=== PATIENT | male | born 1965 | race American Indian/Alaskan Native ===

== ENCOUNTER 2019-02-12 13:00 | Inpatient (IN) | payer OTHER ==
--- NOTE | 2019-02-12 13:13 | Event Note ---
ED Screening Note Date of service: 02/12/19 Time: 13:10 ED Screening Note: This is a 53 y.o. M. that presents to the ER with palpitations for 3 days. Patient states it is intermittent. No PCP or prior diagnosis. This initial assessment/diagnostic orders/clinical plan/treatment(s) is/are subj ect to change based on patients health status, clinical progression and re- assessment by fellow clinical providers in the ED. Further treatment and workup at subsequent clinical providers discretion. Patient/guardian urged not to elope from the ED as their condition may be serious if not clinically assessed and managed. Initial orders include: Labs, EKG, and CXR
--- NOTE | 2019-02-12 14:11 | XRay Report ---
CHEST 1 VIEW INDICATION: palpitations. COMPARISON: None. FINDINGS: Support devices: None. Heart: Within normal limits. Pulmonary vasculature: Normal. Lungs/Pleura: No acute air space or interstitial disease. Additional findings: Aortic elongation. Degenerative change in the spine. IMPRESSION: 1. No acute findings. 2. Hypertensive changes in aorta. Signer Name: Virgilio Delarosa MD Signed: 02/12/2019 2:07 PM Workstation Name: [id number]
[2019-02-12 14:31] LABS: Basophils % (Auto) 0.3 % (0.0-1.8); Eosinophils # (Auto) 0.3 K/mm3 (0.0-0.4); Eosinophils % (Auto) 4.2 % (0.0-4.3); Hematocrit 49.2 % (35.5-45.6); Hemoglobin 16.3 gm/dl (11.8-15.2); Lymphocytes # (Auto) 2.9 K/mm3 (1.2-5.4); Lymphocytes % (Auto) 36.4 % (13.4-35.0); Mean Corpuscular HGB Conc 33 % (32-34); Mean Corpuscular Volume 90 fl (84-94); Monocytes # (Auto) 0.6 K/mm3 (0.0-0.8); Monocytes % (Auto) 7.4 % (0.0-7.3); Platelet Count 259 K/mm3 (140-440); Red Blood Count 5.44 M/mm3 (3.65-5.03); Red Cell Distribution Width 13.8 % (13.2-15.2)
[2019-02-12 14:55] LABS: Alanine Aminotransferase 32 units/L (7-56); Albumin 4.3 g/dL (3.9-5); BUN/Creatinine Ratio 13; Blood Urea Nitrogen 12 mg/dL (9-20); Calcium 9.5 mg/dL (8.4-10.2); Hemolysis Index 33
--- NOTE | 2019-02-12 15:18 | Emergency Department Report ---
ED Palpitations HPI - General Chief Complaint: Arrhythmia/Palpitations Stated Complaint: PALPITATION Time Seen by Provider: 02/12/19 13:09 Source: patient Mode of arrival: Ambulatory Limitations: No Limitations - History of Present Illness Initial Comments: 53-year-old male with no known past medical history presents to the hospital complaining of intermittent palpitations since yesterday. No aggravating or alleviating factors reported. He denies associated symptoms including lightheadedness, chest pain, or shortness of breath. Patient denies a history of any past medical problems but has not seen a doctor immediately years. He denies daily alcohol intake. He has used cocaine in the past with last use 8 months ago. He denies any current drug use and does not smoke. Patient's last travel was in September. He denies Dizziness, leg edema, history of PE/DVT. He does not have a primary care doctor. - Related Data Allergies Allergy/AdvReac Type Severity Reaction Status Date / Time No Known Allergies Allergy Unverified 02/12/19 13:02 ED Review of Systems ROS: Stated complaint: PALPITATION Other details as noted in HPI Comment: All other systems reviewed and negative ED Past Medical Hx - Past Medical History Previous Medical History?: No - Surgical History Past Surgical History?: No - Social History Smoking Status: Never Smoker Substance Use Type: Alcohol ED Physical Exam - General Limitations: No Limitations - Other Other exam information: General: No acute distress Head: Atraumatic Eyes: normal appearance ENT: Moist mucous membranes Neck: Normal appearance, no midline tenderness Chest: Clear to auscultation bilaterally CV: Regular rate and rhythm rhythm with intermittent tachycardia Abdomen: Soft, normal bowel sounds, nontender, nondistended, no rebound or guarding Back: Normal inspection Extremity: Normal inspection infection, full range of motion, no calf tenderness or leg edema Neuro: Alert O x 3, no facial asymmetry, speech clear, no gross motor sensory deficit Psych: Appropriate behavior Skin: No rash ED Course Vital Signs 02/12/19 02/12/19 13:06 14:12 Temperature 98.7 F 98.3 F Pulse Rate 111 H 112 H Respiratory 22 18 Rate Blood Pressure 166/93 Blood Pressure 148/74 [Left] O2 Sat by Pulse 96 95 Oximetry - Consultations Consultation #1: 02/12/19 15:40 pt seen at bedside by cardiology Asha becerra, recommends Cardizem by mouth 60 mg now and Lovenox. ED Medical Decision Making - Lab Data Result diagrams: 02/12/19 13:23 02/12/19 13:23 Lab Results 02/12/19 02/12/19 02/12/19 Range/Units 13:23 13:23 13:23 WBC 8.1 (4.5-11.0) K/mm3 RBC 5.44 H (3.65-5.03) M/mm3 Hgb 16.3 H (11.8-15.2) gm/dl Hct 49.2 H (35.5-45.6) % MCV 90 (84-94) fl MCH 30 (28-32) pg MCHC 33 (32-34) % RDW 13.8 (13.2-15.2) % Plt Count 259 (140-440) K/mm3 Lymph % (Auto) 36.4 H (13.4-35.0) % [place] % (Auto) 7.4 H (0.0-7.3) % Eos % (Auto) 4.2 (0.0-4.3) % Baso % (Auto) 0.3 (0.0-1.8) % Lymph # 2.9 (1.2-5.4) K/mm3 [place] # 0.6 (0.0-0.8) K/mm3 Eos # 0.3 (0.0-0.4) K/mm3 Baso # 0.0 (0.0-0.1) K/mm3 Seg Neutrophils % 51.7 (40.0-70.0) % Seg Neutrophils # 4.2 (1.8-7.7) K/mm3 D-Dimer (0-234) ng/mlDDU Sodium 137 (137-145) mmol/L Potassium 4.2 (3.6-5.0) mmol/L Chloride 99.2 (98-107) mmol/L Carbon Dioxide 19 L (22-30) mmol/L Anion Gap 23 mmol/L BUN 12 (9-20) mg/dL Creatinine 0.9 (0.8-1.5) mg/dL Estimated GFR > 60 ml/min BUN/Creatinine Ratio 13 % Glucose 326 H (75-100) mg/dL Calcium 9.5 (8.4-10.2) mg/dL Total Bilirubin 0.40 (0.1-1.2) mg/dL AST 24 (5-40) units/L ALT 32 (7-56) units/L Alkaline Phosphatase 111 (35-129) units/L Troponin T < 0.010 (0.00-0.029) ng/mL Total Protein 8.2 (6.3-8.2) g/dL Albumin 4.3 (3.9-5) g/dL Albumin/Globulin Ratio 1.1 % TSH 2.360 (0.270-4.200) mlU/mL 02/12/19 Range/Units 15:02 WBC (4.5-11.0) K/mm3 RBC (3.65-5.03) M/mm3 Hgb (11.8-15.2) gm/dl Hct (35.5-45.6) % MCV (84-94) fl MCH (28-32) pg MCHC (32-34) % RDW (13.2-15.2) % Plt Count (140-440) K/mm3 Lymph % (Auto) (13.4-35.0) % [place] % (Auto) (0.0-7.3) % Eos % (Auto) (0.0-4.3) % Baso % (Auto) (0.0-1.8) % Lymph # (1.2-5.4) K/mm3 [place] # (0.0-0.8) K/mm3 Eos # (0.0-0.4) K/mm3 Baso # (0.0-0.1) K/mm3 Seg Neutrophils % (40.0-70.0) % Seg Neutrophils # (1.8-7.7) K/mm3 D-Dimer 167.12 (0-234) ng/mlDDU Sodium (137-145) mmol/L Potassium (3.6-5.0) mmol/L Chloride (98-107) mmol/L Carbon Dioxide (22-30) mmol/L Anion Gap mmol/L BUN (9-20) mg/dL Creatinine (0.8-1.5) mg/dL Estimated GFR ml/min BUN/Creatinine Ratio % Glucose (75-100) mg/dL Calcium (8.4-10.2) mg/dL Total Bilirubin (0.1-1.2) mg/dL AST (5-40) units/L ALT (7-56) units/L Alkaline Phosphatase (35-129) units/L Troponin T (0.00-0.029) ng/mL Total Protein (6.3-8.2) g/dL Albumin (3.9-5) g/dL Albumin/Globulin Ratio % TSH (0.270-4.200) mlU/mL - EKG Data -: EKG Interpreted by Me EKG shows normal: sinus rhythm, ST-T waves (no stemi) Rate: tachycardia - Medical Decision Making Patient has an EKG done initially was suggestive a sinus tachycardia rate 112. However, during my evaluation after rhythm strip evaluation patient would have a rate in the 90s and it would intermittently increase to the 150s. Patient is having episodes of sinus with paroxysmal atrial flutter. EKG and rhythm strips have been reviewed by mechanic general operational test was in agreement. Patient received Cardizem by mouth and Lovenox subcutaneous as recommended by mechanic general operational test. Glucose and blood pressure noted to be elevated without any previous history of hypertension or diabetes. Hospitalist to admit. - Differential Diagnosis thyroid disease, PE, arrhythmia Critical Care Time: No Critical care attestation.: If time is entered above; I have spent that time in minutes in the direct care of this critically ill patient, excluding procedure time. ED Disposition Clinical Impression: Paroxysmal atrial flutter, HTN (hypertension), Obesity, Hyperglycemia Disposition: OP ADMIT IP TO THIS HOSP Is pt being admited?: Yes Condition: Stable Time of Disposition: 16:02 (Dr mora/hosp)
[2019-02-12] MEDS ORDERED: ENOXAPARIN 100 MG/1 ML INJ SUB-Q ONE (15:40)
[2019-02-12] MEDS ORDERED: dilTIAZem 60 MG TAB PO ONE (15:40)
--- NOTE | 2019-02-12 15:49 | Consultation ---
History of Present Illness Consult date: 02/12/19 Requesting physician: BONG SORIANO Consult reason: other (palpitations) History of present illness: The pt is a 53 YO male with no significant past medical history. He does not regularly see doctors. He presented with c/o intermittent palpitations for the past 3-4 days. The palpitations are worse when he is at rest, lying flat. He denies any associated chest pain, SOB, n/v, diaphoresis, dizziness or syncope. He was found to be hypertensive on arrival and also blood glucose noted to be 326. He denies any known h/o HTN or DM. He does admit that he snores loudly and stops breathing sometimes while sleeping and suspects that he has sleep apnea. Admission ECG shows NSR although during evaluation, he is noted to have brief paroxysms of SVT, apparent atrial flutter with 2:1 conduction, with HR increase to 150s. Past History Past Medical History: No medical history Social history: smoking (former), alcohol abuse (former) Medications and Allergies Allergies Allergy/AdvReac Type Severity Reaction Status Date / Time No Known Allergies Allergy Unverified 02/12/19 13:02 Active Meds: Active Medications Diltiazem HCl (Cardizem) 60 mg PO ONCE ONE Stop: 02/12/19 15:41 Review of Systems Constitutional: no weight loss, no weight gain, no fever, no chills, no sweats Ears, nose, mouth and throat: no ear pain, no nose pain, no sinus pressure, no sinus pain Cardiovascular: palpitations, rapid/irregular heart beat, no chest pain, no orthopnea, no edema, no syncope, no lightheadedness, no shortness of breath, no dyspnea on exertion, no high blood pressure, no leg edema, no decreased exercise tolerance Respiratory: no cough, no shortness of breath, no dyspnea on exertion, no congestion, no wheezing, no pain on inspiration Gastrointestinal: no abdominal pain, no nausea, no vomiting, no diarrhea, no constipation, no change in bowel habits Genitourinary Male: no dysuria, no hematuria, no flank pain, no discharge, no urinary frequency, no urinary hesitancy Musculoskeletal: no neck stiffness, no neck pain, no shooting arm pain, no arm numbness/tingling, no low back pain, no shooting leg pain Integumentary: no rash, no pruritis, no redness, no sores, no wounds Neurological: no head injury, no paralysis, no weakness, no parathesias, no numbness, no tingling, no seizures, no syncope Psychiatric: no anxiety Endocrine: no cold intolerance, no heat intolerance Hematologic/Lymphatic: no easy bruising, no easy bleeding Allergic/Immunologic: no urticaria, no wheezing Physical Examination Vital Signs Temp Pulse Resp BP Pulse Ox 98.7 F 111 H 22 166/93 96 02/12/19 13:06 02/12/19 13:06 02/12/19 13:06 02/12/19 13:06 02/12/19 13:06 General appearance: no acute distress HEENT: Positive: PERRL, Normocephaly, Mucus Membranes Moist Neck: Positive: neck supple, trachea midline Cardiac: Positive: Reg Rate and Rhythm, S1/S2 Lungs: Positive: Decreased Breath Sounds Neuro: Positive: Grossly Intact Abdomen: Negative: Tender Skin: Negative: Rash Musculoskeletal: No Pain Extremities: Absent: edema Results 02/12/19 13:23 02/12/19 13:23 Cardiac Enzymes 02/12/19 Range/Units 13:23 AST 24 (5-40) units/L CBC 02/12/19 Range/Units 13:23 WBC 8.1 (4.5-11.0) K/mm3 RBC 5.44 H (3.65-5.03) M/mm3 Hgb 16.3 H (11.8-15.2) gm/dl Hct 49.2 H (35.5-45.6) % Plt Count 259 (140-440) K/mm3 Lymph # 2.9 (1.2-5.4) K/mm3 [place] # 0.6 (0.0-0.8) K/mm3 Eos # 0.3 (0.0-0.4) K/mm3 Baso # 0.0 (0.0-0.1) K/mm3 Comprehensive Metabolic Panel 02/12/19 Range/Units 13:23 Sodium 137 (137-145) mmol/L Potassium 4.2 (3.6-5.0) mmol/L Chloride 99.2 (98-107) mmol/L Carbon Dioxide 19 L (22-30) mmol/L BUN 12 (9-20) mg/dL Creatinine 0.9 (0.8-1.5) mg/dL Glucose 326 H (75-100) mg/dL Calcium 9.5 (8.4-10.2) mg/dL AST 24 (5-40) units/L ALT 32 (7-56) units/L Alkaline Phosphatase 111 (35-129) units/L Total Protein 8.2 (6.3-8.2) g/dL Albumin 4.3 (3.9-5) g/dL - Imaging and Cardiology Echo: pending EKG: report reviewed, image reviewed EKG interpretations - Telemetry EKG Rhythm: Sinus Rhythm - EKG Sinus rhythms and dysrhythmias: sinus rhythm Assessment and Plan Pt presented with c/o intermittent palpitations for the past 3-4 days. No known prior medical history. Admission ECG shows NSR although during evaluation, he is noted to have brief paroxysms of SVT, apparent atrial flutter with 2:1 conduction, with HR increase to 150s. Optimize HR - initiate PO cardizem and titrate as tolerated. Initiate full do sylvia lovenox BID and consider conversion to OAC prior to hospital discharge. Obtain echo. DDimer pending. TSH and K+ WNL. Obtain serum Mg. Recommend OP sleep study once discharged. Can consider stress test once HR is optimized. Further recs to follow per hospital course. The patient has been seen in conjunction with Dr. Sharma who agrees with the assessment and plan of care. - Patient Problems (1) Paroxysmal atrial flutter Status: Acute (2) HTN (hypertension) Status: Chronic (3) Hyperglycemia Status: Acute (4) Obesity Status: Chronic (5) Sleep apnea Status: Suspected
--- NOTE | 2019-02-12 16:03 | History and Physical Report ---
History of Present Illness Chief complaint: My heart is pounding inside my chest History of present illness: 53 YO Male with Obesity presents to ED for evaluation. Pt states that he has experienced feeling like his "heart is pounding" over the past 4 days with intermittently persistent symptoms over the same time frame. Pt transported to [facility]. Pt seen and evaluated in ED and found to have New onset Atrial Fib/flutter with heart rate in the 150's, Obesity Hypoventilation. Pt placed in observation status and admitted to telemetry. Pt denies fever, chills, CP, NVD, Trauma, Unintentional weight loss, difficulty swallowing, neck swelling, skin rash, unilateral leg swelling, calf pain, Individual/Family history of DV T/PE/Bleeding/Blood Clotting Disorders. No prior admission for review. No medication listed at time of admission for reconciliation. Past History Past Medical History: No medical history Past Surgical History: No surgical history, Other (reviewed) Social history: smoking (former), alcohol abuse (former) Family history: diabetes, hypertension Medications and Allergies Allergies Allergy/AdvReac Type Severity Reaction Status Date / Time No Known Allergies Allergy Unverified 02/12/19 13:02 Active Meds: Active Medications Diltiazem HCl (Cardizem) 60 mg PO Q6HR DANA Review of Systems Constitutional: no weight loss, no weight gain, no fever, no chills Ears, nose, mouth and throat: no ear pain, no ear discharge, no tinnitis, no decreased hearing, no nose pain Cardiovascular: palpitations, no chest pain, no lightheadedness, no paroxysmal nocturnal dyspnea, no decreased exercise tolerance Respiratory: no cough, no cough with sputum, no excessive sputum Gastrointestinal: no abdominal pain, no nausea, no vomiting, no diarrhea, no constipation Genitourinary Male: no hematuria, no flank pain, no discharge, no urinary frequency, no urinary hesitancy Rectal: no pain, no incontinence, no bleeding Musculoskeletal: no neck stiffness, no neck pain, no shooting arm pain, no arm numbness/tingling, no low back pain Integumentary: no rash, no pruritis, no redness, no sores, no wounds Neurological: no transient paralysis, no paralysis, no weakness, no parathesias, no numbness, no tingling Psychiatric: no anxiety, no memory loss, no change in sleep habits, no sleep disturbances, no insomnia, no hypersomnia, no change in appetite Endocrine: no cold intolerance, no heat intolerance, no polyphagia, no excessive thirst, no polydipsia, no polyuria Hematologic/Lymphatic: no easy bruising, no easy bleeding, no lymphadenopathy Allergic/Immunologic: no urticaria, no allergic rhinitis, no wheezing, no persistent infections Exam - Constitutional Vitals: Temp Pulse Resp BP Pulse Ox 98.3 F 112 H 18 148/74 95 02/12/19 14:12 02/12/19 14:12 02/12/19 14:12 02/12/19 14:12 02/12/19 14:12 General appearance: Present: mild distress, obese - EENT Eyes: Present: PERRL ENT: hearing intact, clear oral mucosa - Neck Neck: Present: supple, normal ROM - Respiratory Respiratory effort: normal Respiratory: bilateral: CTA - Cardiovascular Rhythm: irregularly irregular Heart Sounds: Present: S1 & S2. Absent: rub, click - Extremities Extremities: pulses symmetrical, No edema Peripheral Pulses: within normal limits - Abdominal General gastrointestinal: Present: soft, non-tender, non-distended, normal bowel sounds Male genitourinary: Present: normal - Integumentary Integumentary: Present: clear, warm, dry - Musculoskeletal Musculoskeletal: gait normal, strength equal bilaterally - Psychiatric Psychiatric: appropriate mood/affect, intact judgment & insight - Neurologic Neurologic: CNII-XII intact, moves all extremities Results - Labs CBC & Chem 7: 02/12/19 13:23 02/12/19 13:23 Labs: Abnormal lab results 02/12/19 02/12/19 Range/Units 13:23 13:23 RBC 5.44 H (3.65-5.03) M/mm3 Hgb 16.3 H (11.8-15.2) gm/dl Hct 49.2 H (35.5-45.6) % Lymph % (Auto) 36.4 H (13.4-35.0) % [place] % (Auto) 7.4 H (0.0-7.3) % Carbon Dioxide 19 L (22-30) mmol/L Glucose 326 H (75-100) mg/dL Assessment and Plan - Patient Problems (1) Atrial fibrillation and flutter Current Visit: Yes Status: Acute Plan to address problem: Rate control with cardizem, telemetry monitoring, supportive care. (2) Obesity hypoventilation syndrome Current Visit: Yes Status: Acute Plan to address problem: pulse oximetry, chest x ray, NIPPV as clinically indicated, Outpatient sleep study, (3) Diabetes Current Visit: Yes Status: Acute Plan to address problem: ADA diet, insulin, accu check, hgb A1C (4) DVT prophylaxis Current Visit: Yes Status: Acute Plan to address problem: SCD to BLE while in bed, continue therapeutic anticoagulation.
[2019-02-12] MEDS ORDERED: DEXTROSE 50% IN WATER (25GM) 50 ML SYRINGE IV PRN (16:04)
[2019-02-12] MEDS ORDERED: ALBUTEROL 2.5 MG/3 ML NEBU IH PRN (16:05)
[2019-02-12] MEDS ORDERED: ACETAMINOPHEN 325 MG TAB PO PRN (16:05)
[2019-02-12] MEDS ORDERED: ONDANSETRON 4 MG/2 ML INJ IV PRN (16:05)
[2019-02-12 17:37] LABS: Amphetamine Screen,Urine PRESUMPTIVE NEGATIVE; Benzodiazepines Screen,Urine PRESUMPTIVE NEGATIVE; Cannabinoid Screen,Urine PRESUMPTIVE NEGATIVE; Cocaine Screen,Urine PRESUMPTIVE NEGATIVE; Opiate Screen,Urine PRESUMPTIVE NEGATIVE
[2019-02-12 17:52] LABS: Methadone Screen,Urine PRESUMPTIVE NEGATIVE
[2019-02-12] MEDS: INSULIN LISPRO 100 UNIT/ML SUB-Q SCH (18:44)
[2019-02-12] MEDS: FAMOTIDINE 20 MG TAB PO SCH (22:33)
[2019-02-12] MEDS: dilTIAZem 60 MG TAB PO SCH (22:33)
[2019-02-13] MEDS: INSULIN LISPRO 100 UNIT/ML SUB-Q SCH ×5 (00:48→22:13)
[2019-02-13] MEDS: dilTIAZem 60 MG TAB PO SCH ×4 (00:49→22:10)
[2019-02-13 04:35] LABS: Hematocrit 47.3 % (35.5-45.6); Hemoglobin 15.5 gm/dl (11.8-15.2); Mean Corpuscular HGB Conc 33 % (32-34); Mean Corpuscular Volume 91 fl (84-94); Platelet Count 243 K/mm3 (140-440); Red Cell Distribution Width 13.6 % (13.2-15.2)
[2019-02-13 05:39] LABS: BUN/Creatinine Ratio 13; Blood Urea Nitrogen 12 mg/dL (9-20); Calcium 9.5 mg/dL (8.4-10.2); Chol/HDL Ratio 7.34 %; HDL Cholesterol 26 mg/dL (40-59); Hemolysis Index 17; LDL Cholesterol,Direct TNR mg/dL (50-130)
[2019-02-13] MEDS ORDERED: ENOXAPARIN 100 MG/1 ML INJ SUB-Q SCH (10:00)
--- NOTE | 2019-02-13 10:49 | Progress Note ---
Assessment and Plan Optimize HR - initiate PO lopressor 50mg BID and decrease cardizem to 60mg TID. Cont full dosage lovenox BID and consider conversion to OAC prior to hospital discharge. Await echo. Recommend OP sleep study once discharged. Plan for lexiscan MPI stress test in AM pending HR is optimized. NPO after MN. The patient has been seen in conjunction with Dr. Sharma who agrees with the assessment and plan of care. - Patient Problems (1) Paroxysmal atrial flutter Current Visit: No Status: Acute (2) HTN (hypertension) Current Visit: No Status: Chronic (3) Newly diagnosed diabetes Current Visit: Yes Status: Acute (4) Obesity Current Visit: Yes Status: Chronic (5) Sleep apnea Current Visit: Yes Status: Suspected Subjective Date of service: 02/13/19 Principal diagnosis: parox afib/aflutter Interval history: pt ambulating around room, still with c/o intermittent palpitations. tele reviewed - currently in SR with frequent bouts of AFib/AFlutter overnight, HR 130s. Objective Last Vital Signs Temp 98.6 F 02/13/19 04:09 Pulse 76 02/13/19 06:31 Resp 18 02/13/19 04:09 BP 128/84 02/13/19 06:31 Pulse Ox 97 02/13/19 04:09 - Physical Examination General: No Apparent Distress HEENT: Positive: PERRL, Normocephaly, Mucus Membranes Moist Neck: Positive: neck supple, trachea midline Cardiac: Positive: Reg Rate and Rhythm, S1/S2 Lungs: Positive: Decreased Breath Sounds Neuro: Positive: Grossly Intact Abdomen: Negative: Tender Skin: Negative: Rash Musculoskeletal: No Pain Extremities: Absent: edema - Labs and Meds Cardiac Enzymes 02/12/19 Range/Units 13:23 AST 24 (5-40) units/L Lipids 02/13/19 Range/Units 03:32 Triglycerides 450 H (2-149) mg/dL Cholesterol 191 (50-199) mg/dL HDL Cholesterol 26 L (40-59) mg/dL Cholesterol/HDL Ratio 7.34 % CBC 02/12/19 02/13/19 Range/Units 13:23 03:32 WBC 8.1 8.1 (4.5-11.0) K/mm3 RBC 5.44 H 5.20 H (3.65-5.03) M/mm3 Hgb 16.3 H 15.5 H (11.8-15.2) gm/dl Hct 49.2 H 47.3 H (35.5-45.6) % Plt Count 259 243 (140-440) K/mm3 Lymph # 2.9 (1.2-5.4) K/mm3 [place] # 0.6 (0.0-0.8) K/mm3 Eos # 0.3 (0.0-0.4) K/mm3 Baso # 0.0 (0.0-0.1) K/mm3 Comprehensive Metabolic Panel 02/12/19 02/13/19 Range/Units 13:23 03:32 Sodium 137 137 (137-145) mmol/L Potassium 4.2 4.2 (3.6-5.0) mmol/L Chloride 99.2 99.8 (98-107) mmol/L Carbon Dioxide 19 L 21 L (22-30) mmol/L BUN 12 12 (9-20) mg/dL Creatinine 0.9 0.9 (0.8-1.5) mg/dL Glucose 326 H 197 H (75-100) mg/dL Calcium 9.5 9.5 (8.4-10.2) mg/dL AST 24 (5-40) units/L ALT 32 (7-56) units/L Alkaline Phosphatase 111 (35-129) units/L Total Protein 8.2 (6.3-8.2) g/dL Albumin 4.3 (3.9-5) g/dL - Imaging and Cardiology EKG: report reviewed, image reviewed Echo: pending - EKG Sinus rhythms and dysrhythmias: sinus rhythm
[2019-02-13] MEDS: METOPROLOL TARTRATE 50 MG TAB PO SCH ×2 (10:51→22:11)
[2019-02-13] MEDS: ENOXAPARIN 120 MG/0.8 ML INJ SUB-Q SCH ×2 (10:52→22:11)
[2019-02-13] MEDS: FAMOTIDINE 20 MG TAB PO SCH ×2 (10:52→22:10)
--- NOTE | 2019-02-13 19:50 | Progress Note ---
Assessment and Plan Assessment and plan: -- Atrial fibrillation and flutter with rapid ventricular rate Current Visit: Yes Status: Acute Rate control with cardizem, telemetry monitoring, supportive care. Cardiology consult. Therapeutic anticoagulation with Lovenox --Atypical chest pain ; Rule out acute coronary syndrome Stress test when rate is controlled Cardiology following --Obesity hypoventilation syndrome Current Visit: Yes Status: Acute pulse oximetry, chest x ray, NIPPV as clinically indicated, Outpatient sleep study, --2 Diabetes Current Visit: Yes Status: Acute ADA diet, insulin, accu check, hgb A1C Diabetic education and nutrition consult if needed -- DVT prophylaxis Current Visit: Yes Status: Acute SCD to BLE while in bed, Lovenox Monitor closely and adjust the management as needed Cardiology evaluation and recommendations noted and appreciated History Interval history: Sincerely and examined medical records reviewed Patient was admitted with A. fib with rapid ventricular rate Received Cardizem with mild improvement Patient complaints of atypical chest pain Vital signs noted Hospitalist Physical - Constitutional Vitals: Temp Pulse Resp BP Pulse Ox 98.0 F 72 18 140/82 95 02/13/19 17:01 02/13/19 17:01 02/13/19 17:01 02/13/19 17:01 02/13/19 17:01 General appearance: Present: no acute distress, obese - EENT Eyes: Present: PERRL, EOM intact - Neck Neck: Present: supple, normal ROM - Respiratory Respiratory effort: normal Respiratory: bilateral: diminished, negative: rales, rhonchi, wheezing - Cardiovascular Rhythm: irregularly irregular Heart Sounds: Present: S1 & S2 - Extremities Extremities: no ischemia, No edema - Abdominal General gastrointestinal: soft, non-tender, non-distended, normal bowel sounds - Integumentary Integumentary: Present: clear, warm - Psychiatric Psychiatric: appropriate mood/affect, cooperative - Neurologic Neurologic: CNII-XII intact, moves all extremities Results - Labs CBC & Chem 7: 02/13/19 03:32 02/13/19 03:32 Labs: Laboratory Last Values WBC 8.1 K/mm3 (4.5-11.0) 02/13/19 03:32 RBC 5.20 M/mm3 (3.65-5.03) H 02/13/19 03:32 Hgb 15.5 gm/dl (11.8-15.2) H 02/13/19 03:32 Hct 47.3 % (35.5-45.6) H 02/13/19 03:32 MCV 91 fl (84-94) 02/13/19 03:32 MCH 30 pg (28-32) 02/13/19 03:32 MCHC 33 % (32-34) 02/13/19 03:32 RDW 13.6 % (13.2-15.2) 02/13/19 03:32 Plt Count 243 K/mm3 (140-440) 02/13/19 03:32 Lymph % (Auto) 36.4 % (13.4-35.0) H 02/12/19 13:23 [place] % (Auto) 7.4 % (0.0-7.3) H 02/12/19 13:23 Eos % (Auto) 4.2 % (0.0-4.3) 02/12/19 13:23 Baso % (Auto) 0.3 % (0.0-1.8) 02/12/19 13:23 Lymph # 2.9 K/mm3 (1.2-5.4) 02/12/19 13:23 [place] # 0.6 K/mm3 (0.0-0.8) 02/12/19 13:23 Eos # 0.3 K/mm3 (0.0-0.4) 02/12/19 13:23 Baso # 0.0 K/mm3 (0.0-0.1) 02/12/19 13:23 Seg Neutrophils % 51.7 % (40.0-70.0) 02/12/19 13:23 Seg Neutrophils # 4.2 K/mm3 (1.8-7.7) 02/12/19 13:23 D-Dimer 167.12 ng/mlDDU (0-234) 02/12/19 15:02 Sodium 137 mmol/L (137-145) 02/13/19 03:32 Potassium 4.2 mmol/L (3.6-5.0) 02/13/19 03:32 Chloride 99.8 mmol/L (98-107) 02/13/19 03:32 Carbon Dioxide 21 mmol/L (22-30) L 02/13/19 03:32 Anion Gap 20 mmol/L 02/13/19 03:32 BUN 12 mg/dL (9-20) 02/13/19 03:32 Creatinine 0.9 mg/dL (0.8-1.5) 02/13/19 03:32 Estimated GFR > 60 ml/min 02/13/19 03:32 BUN/Creatinine Ratio 13 % 02/13/19 03:32 Glucose 197 mg/dL (75-100) H 02/13/19 03:32 POC Glucose 165 (70-105) H 02/13/19 17:08 Hemoglobin A1c 9.1 % (4-6) H 02/12/19 13:23 Calcium 9.5 mg/dL (8.4-10.2) 02/13/19 03:32 Magnesium 2.00 mg/dL (1.7-2.3) 02/12/19 20:03 Total Bilirubin 0.40 mg/dL (0.1-1.2) 02/12/19 13:23 AST 24 units/L (5-40) 02/12/19 13:23 ALT 32 units/L (7-56) 02/12/19 13:23 Alkaline Phosphatase 111 units/L (35-129) 02/12/19 13:23 Troponin T < 0.010 ng/mL (0.00-0.029) 02/12/19 13:23 Total Protein 8.2 g/dL (6.3-8.2) 02/12/19 13:23 Albumin 4.3 g/dL (3.9-5) 02/12/19 13:23 Albumin/Globulin Ratio 1.1 % 02/12/19 13:23 Triglycerides 450 mg/dL (2-149) H 02/13/19 03:32 Cholesterol 191 mg/dL (50-199) 02/13/19 03:32 LDL Cholesterol Direct TNR 02/13/19 03:32 HDL Cholesterol 26 mg/dL (40-59) L 02/13/19 03:32 Cholesterol/HDL Ratio 7.34 % 02/13/19 03:32 TSH 2.360 mlU/mL (0.270-4.200) 02/12/19 13:23 Urine Opiates Screen Presumptive negative 02/12/19 Unknown Urine Methadone Screen Presumptive negative 02/12/19 Unknown Ur Barbiturates Screen Presumptive negative 02/12/19 Unknown Ur Phencyclidine Scrn Presumptive negative 02/12/19 Unknown Ur Amphetamines Screen Presumptive negative 02/12/19 Unknown U Benzodiazepines Scrn Presumptive negative 02/12/19 Unknown Urine Cocaine Screen Presumptive negative 02/12/19 Unknown U Marijuana (THC) Screen Presumptive negative 02/12/19 Unknown Drugs of Abuse Note Disclamer 02/12/19 Unknown Active Medications - Current Medications Current Medications: Generic Name Dose Route Start Last Admin Trade Name Freq PRN Reason Stop Dose Admin Acetaminophen 650 mg 02/12/19 16:05 Tylenol PO Q4H PRN Pain MILD(1-3)/Fever >100.5/HEALY Albuterol 2.5 mg 02/12/19 16:05 Proventil IH Q4HRT PRN Shortness Of Breath Dextrose 50 ml 02/12/19 16:04 D50w (25gm) Syringe IV Q30MIN PRN Hypoglycemia Protocol Diltiazem HCl 60 mg 02/13/19 14:00 02/13/19 14:32 Cardizem PO 60 mg TID DANA Administration Enoxaparin Sodium 120 mg 02/13/19 10:00 02/13/19 10:52 Enoxaparin SUB-Q 120 mg BID DANA Administration Famotidine 20 mg 02/12/19 22:00 02/13/19 10:52 Pepcid PO 20 mg BID DANA Administration Insulin Human Lispro 0 unit 02/13/19 11:30 02/13/19 18:23 Humalog SUB-Q 2 unit ACHS DANA Administration Protocol Metoprolol Tartrate 50 mg 02/13/19 11:00 02/13/19 10:51 Metoprolol PO 50 mg BID DANA Administration Ondansetron HCl 4 mg 02/12/19 16:05 Zofran IV Q8H PRN Nausea And Vomiting Sodium Chloride 10 ml 02/12/19 22:00 02/13/19 10:52 Sodium Chloride Flush Syringe 10 Ml IV 10 ml BID DANA Administration Sodium Chloride 10 ml 02/12/19 16:05 Sodium Chloride Flush Syringe 10 Ml IV PRN PRN LINE FLUSH Nutrition/Malnutrition Assess - Dietary Evaluation Nutrition/Malnutrition Findings: Nutrition Notes Start: 02/13/19 09:42 Freq: Status: Active Protocol: Document 02/13/19 09:42 LP (Rec: 02/13/19 09:45 LP [id number]) Nutrition Notes 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 Pt not in room at time of visit. Nutrition Intervention Follow-Up By: 02/14/19 Additional Comments Follow for DM diet education
[2019-02-14] MEDS: INSULIN LISPRO 100 UNIT/ML SUB-Q SCH ×4 (09:30→21:33)
[2019-02-14] MEDS: dilTIAZem 60 MG TAB PO SCH ×3 (09:45→21:34)
[2019-02-14] MEDS: METOPROLOL TARTRATE 50 MG TAB PO SCH ×2 (09:46→21:35)
[2019-02-14] MEDS: ENOXAPARIN 120 MG/0.8 ML INJ SUB-Q SCH ×2 (09:46→21:35)
[2019-02-14] MEDS: FAMOTIDINE 20 MG TAB PO SCH ×2 (09:46→21:33)
--- NOTE | 2019-02-14 10:02 | Progress Note ---
Assessment and Plan Transient bradycardia noted on telemetry overnight and in early AM; several bouts of tachycardia in 140s noted as well. Continue current management and closely monitor HR throughout the day and with activity. Stress test in AM, NPO after midnight. The patient has been seen in conjunction with Dr. Yolanda Calvo, who agrees with the assessment and plan. - Patient Problems (1) Atrial fibrillation and flutter Current Visit: Yes Status: Acute (2) Newly diagnosed diabetes Current Visit: Yes Status: Acute (3) Obesity Current Visit: Yes Status: Chronic (4) Sleep apnea Current Visit: Yes Status: Suspected (5) HTN (hypertension) Current Visit: No Status: Chronic Subjective Date of service: 02/14/19 Principal diagnosis: parox afib/aflutter Interval history: The patient is walking around the room in [facility]. He has no complaints. Telemetry reviewed - SR/ST with rates ranging from the 60s to 140s transiently. Echocardiogram on 02/13/19 found an EF to 50 percent with impaired relaxation and trace TR. Objective Last Vital Signs Temp 97.7 F 02/14/19 05:16 Pulse 71 02/14/19 09:46 Resp 20 02/14/19 07:50 BP 139/74 02/14/19 09:46 Pulse Ox 95 02/14/19 08:59 - Physical Examination General: No Apparent Distress HEENT: Positive: PERRL, Normocephaly, Mucus Membranes Moist Neck: Positive: neck supple, trachea midline Cardiac: Positive: Irregularly Regular Lungs: Positive: Decreased Breath Sounds Neuro: Positive: Grossly Intact Abdomen: Positive: Unremarkable. Negative: Tender /Rectal: Other (deferred) Skin: Positive: Clear. Negative: Rash Musculoskeletal: Normal Range of Motion Extremities: Present: normal. Absent: edema - Imaging and Cardiology EKG: report reviewed, image reviewed Echo: pending - Telemetry EKG Rhythm: Sinus Rhythm (with PACs; transiently ST) - EKG Sinus rhythms and dysrhythmias: sinus rhythm
--- NOTE | 2019-02-14 10:32 | Progress Note ---
Assessment and Plan Assessment and plan: -- Atrial fibrillation and flutter with rapid ventricular rate Current Visit: Yes Status: Acute Rate control with cardizem, telemetry monitoring, supportive care. Cardiology consult. Therapeutic anticoagulation with Lovenox --Atypical chest pain ; Rule out acute coronary syndrome Stress test when rate is controlled Cardiology following --Obesity hypoventilation syndrome Current Visit: Yes Status: Acute pulse oximetry, chest x ray, NIPPV as clinically indicated, Outpatient sleep study, --2 Diabetes Current Visit: Yes Status: Acute ADA diet, insulin, accu check, hgb A1C Diabetic education and nutrition consult if needed --Morbid obesity; advice exercise as tolerated and weight reduction -- DVT prophylaxis Current Visit: Yes Status: Acute SCD to BLE while in bed, Lovenox Monitor closely and adjust the management as needed Cardiology planning stress test tomorrow If stress test is negative and patient stable, Patient can be discharged home tomorrow Plan of care reviewed with the patient and the at the bedside History Interval history: Patient seen and examined medical records reviewed Patient feels better no new complaints Scheduled for stress test tomorrow Denies chest pain or shortness of breath Vital signs reviewed Hospitalist Physical - Constitutional Vitals: Temp Pulse Resp BP Pulse Ox 97.7 F 71 20 139/74 95 02/14/19 05:16 02/14/19 09:46 02/14/19 07:50 02/14/19 09:46 02/14/19 08:59 General appearance: Present: no acute distress, obese - EENT Eyes: Present: PERRL, EOM intact - Neck Neck: Present: supple, normal ROM - Respiratory Respiratory effort: normal Respiratory: bilateral: diminished, negative: rales, rhonchi, wheezing - Cardiovascular Rhythm: regular Heart Sounds: Present: S1 & S2 - Extremities Extremities: no ischemia, No edema - Abdominal General gastrointestinal: soft, non-tender, non-distended, normal bowel sounds - Integumentary Integumentary: Present: clear, warm - Psychiatric Psychiatric: appropriate mood/affect, cooperative - Neurologic Neurologic: CNII-XII intact, moves all extremities Results - Labs CBC & Chem 7: 02/13/19 03:32 02/13/19 03:32 Labs: Laboratory Last Values WBC 8.1 K/mm3 (4.5-11.0) 02/13/19 03:32 RBC 5.20 M/mm3 (3.65-5.03) H 02/13/19 03:32 Hgb 15.5 gm/dl (11.8-15.2) H 02/13/19 03:32 Hct 47.3 % (35.5-45.6) H 02/13/19 03:32 MCV 91 fl (84-94) 02/13/19 03:32 MCH 30 pg (28-32) 02/13/19 03:32 MCHC 33 % (32-34) 02/13/19 03:32 RDW 13.6 % (13.2-15.2) 02/13/19 03:32 Plt Count 243 K/mm3 (140-440) 02/13/19 03:32 Lymph % (Auto) 36.4 % (13.4-35.0) H 02/12/19 13:23 [place] % (Auto) 7.4 % (0.0-7.3) H 02/12/19 13:23 Eos % (Auto) 4.2 % (0.0-4.3) 02/12/19 13:23 Baso % (Auto) 0.3 % (0.0-1.8) 02/12/19 13:23 Lymph # 2.9 K/mm3 (1.2-5.4) 02/12/19 13:23 [place] # 0.6 K/mm3 (0.0-0.8) 02/12/19 13:23 Eos # 0.3 K/mm3 (0.0-0.4) 02/12/19 13:23 Baso # 0.0 K/mm3 (0.0-0.1) 02/12/19 13:23 Seg Neutrophils % 51.7 % (40.0-70.0) 02/12/19 13:23 Seg Neutrophils # 4.2 K/mm3 (1.8-7.7) 02/12/19 13:23 D-Dimer 167.12 ng/mlDDU (0-234) 02/12/19 15:02 Sodium 137 mmol/L (137-145) 02/13/19 03:32 Potassium 4.2 mmol/L (3.6-5.0) 02/13/19 03:32 Chloride 99.8 mmol/L (98-107) 02/13/19 03:32 Carbon Dioxide 21 mmol/L (22-30) L 02/13/19 03:32 Anion Gap 20 mmol/L 02/13/19 03:32 BUN 12 mg/dL (9-20) 02/13/19 03:32 Creatinine 0.9 mg/dL (0.8-1.5) 02/13/19 03:32 Estimated GFR > 60 ml/min 02/13/19 03:32 BUN/Creatinine Ratio 13 % 02/13/19 03:32 Glucose 197 mg/dL (75-100) H 02/13/19 03:32 POC Glucose 170 (70-105) H 02/14/19 07:58 Hemoglobin A1c 9.1 % (4-6) H 02/12/19 13:23 Calcium 9.5 mg/dL (8.4-10.2) 02/13/19 03:32 Magnesium 2.00 mg/dL (1.7-2.3) 02/12/19 20:03 Total Bilirubin 0.40 mg/dL (0.1-1.2) 02/12/19 13:23 AST 24 units/L (5-40) 02/12/19 13:23 ALT 32 units/L (7-56) 02/12/19 13:23 Alkaline Phosphatase 111 units/L (35-129) 02/12/19 13:23 Troponin T < 0.010 ng/mL (0.00-0.029) 02/12/19 13:23 Total Protein 8.2 g/dL (6.3-8.2) 02/12/19 13:23 Albumin 4.3 g/dL (3.9-5) 02/12/19 13:23 Albumin/Globulin Ratio 1.1 % 02/12/19 13:23 Triglycerides 450 mg/dL (2-149) H 02/13/19 03:32 Cholesterol 191 mg/dL (50-199) 02/13/19 03:32 LDL Cholesterol Direct TNR 02/13/19 03:32 HDL Cholesterol 26 mg/dL (40-59) L 02/13/19 03:32 Cholesterol/HDL Ratio 7.34 % 02/13/19 03:32 TSH 2.360 mlU/mL (0.270-4.200) 02/12/19 13:23 Urine Opiates Screen Presumptive negative 02/12/19 Unknown Urine Methadone Screen Presumptive negative 02/12/19 Unknown Ur Barbiturates Screen Presumptive negative 02/12/19 Unknown Ur Phencyclidine Scrn Presumptive negative 02/12/19 Unknown Ur Amphetamines Screen Presumptive negative 02/12/19 Unknown U Benzodiazepines Scrn Presumptive negative 02/12/19 Unknown Urine Cocaine Screen Presumptive negative 02/12/19 Unknown U Marijuana (THC) Screen Presumptive negative 02/12/19 Unknown Drugs of Abuse Note Disclamer 02/12/19 Unknown Active Medications - Current Medications Current Medications: Generic Name Dose Route Start Last Admin Trade Name Freq PRN Reason Stop Dose Admin Acetaminophen 650 mg 02/12/19 16:05 Tylenol PO Q4H PRN Pain MILD(1-3)/Fever >100.5/HEALY Albuterol 2.5 mg 02/12/19 16:05 Proventil IH Q4HRT PRN Shortness Of Breath Dextrose 50 ml 02/12/19 16:04 D50w (25gm) Syringe IV Q30MIN PRN Hypoglycemia Protocol Diltiazem HCl 60 mg 02/13/19 14:00 02/14/19 09:45 Cardizem PO 60 mg TID DANA Administration Enoxaparin Sodium 120 mg 02/13/19 10:00 02/14/19 09:46 Enoxaparin SUB-Q 120 mg BID DANA Administration Famotidine 20 mg 02/12/19 22:00 02/14/19 09:46 Pepcid PO 20 mg BID DANA Administration Insulin Human Lispro 0 unit 02/13/19 11:30 02/14/19 09:30 Humalog SUB-Q 2 unit ACHS DANA Administration Protocol Metoprolol Tartrate 50 mg 02/13/19 11:00 02/14/19 09:46 Metoprolol PO 50 mg BID DANA Administration Ondansetron HCl 4 mg 02/12/19 16:05 Zofran IV Q8H PRN Nausea And Vomiting Sodium Chloride 10 ml 02/12/19 22:00 02/14/19 09:46 Sodium Chloride Flush Syringe 10 Ml IV 10 ml BID DANA Administration Sodium Chloride 10 ml 02/12/19 16:05 Sodium Chloride Flush Syringe 10 Ml IV PRN PRN LINE FLUSH Nutrition/Malnutrition Assess - Dietary Evaluation Nutrition/Malnutrition Findings: Nutrition Notes Start: 02/13/19 09:42 Freq: Status: Active Protocol: Document 02/13/19 09:42 LP (Rec: 02/13/19 09:45 LP [email or web address]) Nutrition Notes 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 Pt not in room at time of visit. Nutrition Intervention Follow-Up By: 02/14/19 Additional Comments Follow for DM diet education
[2019-02-15] MEDS: INSULIN LISPRO 100 UNIT/ML SUB-Q SCH (07:34)
[2019-02-15] MEDS: dilTIAZem 60 MG TAB PO SCH (08:00)
[2019-02-15] MEDS ORDERED: REGADENOSON 0.4 MG/5 ML INJ IV ONE ×2 (08:14→08:18)
--- NOTE | 2019-02-15 09:41 | Progress Note ---
Assessment and Plan Assessment and plan: --Atypical chest pain ; Rule out acute coronary syndrome Cardiology planning stress test -- Atrial fibrillation and flutter with rapid ventricular rate Current Visit: Yes Status: Acute Rate control with cardizem, beta blockers Cardiology following supportive care. Therapeutic anticoagulation with Lovenox --Obesity hypoventilation syndrome Current Visit: Yes Status: Acute pulse oximetry, chest x ray, NIPPV as clinically indicated, Outpatient sleep study, --possible obstructive sleep apnea BiPAP at night, patient needs outpatient sleep study; --2 Diabetes, Current Visit: Yes Status: Acute ADA diet, insulin, accu check, hgb A1C Diabetic education and nutrition consult if needed --Morbid obesity; advice exercise as tolerated and weight reduction -- DVT prophylaxis Current Visit: Yes Status: Acute SCD to BLE while in bed, Lovenox Monitor closely and adjust the management as needed Cardiology planning stress test tomorrow If stress test is negative and patient stable, Patient can be discharged home tomorrow Plan of care reviewed with the patient and the at the bedside Hospitalist Physical - Constitutional Vitals: Temp Pulse Resp BP Pulse Ox 98.9 F 66 18 122/80 94 02/15/19 03:51 02/15/19 07:50 02/15/19 03:51 02/15/19 09:22 02/15/19 07:50 General appearance: Present: no acute distress, obese Results - Labs CBC & Chem 7: 02/13/19 03:32 02/13/19 03:32 Labs: Laboratory Last Values WBC 8.1 K/mm3 (4.5-11.0) 02/13/19 03:32 RBC 5.20 M/mm3 (3.65-5.03) H 02/13/19 03:32 Hgb 15.5 gm/dl (11.8-15.2) H 02/13/19 03:32 Hct 47.3 % (35.5-45.6) H 02/13/19 03:32 MCV 91 fl (84-94) 02/13/19 03:32 MCH 30 pg (28-32) 02/13/19 03:32 MCHC 33 % (32-34) 02/13/19 03:32 RDW 13.6 % (13.2-15.2) 02/13/19 03:32 Plt Count 243 K/mm3 (140-440) 02/13/19 03:32 Lymph % (Auto) 36.4 % (13.4-35.0) H 02/12/19 13:23 [place] % (Auto) 7.4 % (0.0-7.3) H 02/12/19 13:23 Eos % (Auto) 4.2 % (0.0-4.3) 02/12/19 13:23 Baso % (Auto) 0.3 % (0.0-1.8) 02/12/19 13:23 Lymph # 2.9 K/mm3 (1.2-5.4) 02/12/19 13:23 [place] # 0.6 K/mm3 (0.0-0.8) 02/12/19 13:23 Eos # 0.3 K/mm3 (0.0-0.4) 02/12/19 13:23 Baso # 0.0 K/mm3 (0.0-0.1) 02/12/19 13:23 Seg Neutrophils % 51.7 % (40.0-70.0) 02/12/19 13:23 Seg Neutrophils # 4.2 K/mm3 (1.8-7.7) 02/12/19 13:23 D-Dimer 167.12 ng/mlDDU (0-234) 02/12/19 15:02 Sodium 137 mmol/L (137-145) 02/13/19 03:32 Potassium 4.2 mmol/L (3.6-5.0) 02/13/19 03:32 Chloride 99.8 mmol/L (98-107) 02/13/19 03:32 Carbon Dioxide 21 mmol/L (22-30) L 02/13/19 03:32 Anion Gap 20 mmol/L 02/13/19 03:32 BUN 12 mg/dL (9-20) 02/13/19 03:32 Creatinine 0.9 mg/dL (0.8-1.5) 02/13/19 03:32 Estimated GFR > 60 ml/min 02/13/19 03:32 BUN/Creatinine Ratio 13 % 02/13/19 03:32 Glucose 197 mg/dL (75-100) H 02/13/19 03:32 POC Glucose 158 (70-105) H 02/15/19 07:57 Hemoglobin A1c 9.1 % (4-6) H 02/12/19 13:23 Calcium 9.5 mg/dL (8.4-10.2) 02/13/19 03:32 Magnesium 2.00 mg/dL (1.7-2.3) 02/12/19 20:03 Total Bilirubin 0.40 mg/dL (0.1-1.2) 02/12/19 13:23 AST 24 units/L (5-40) 02/12/19 13:23 ALT 32 units/L (7-56) 02/12/19 13:23 Alkaline Phosphatase 111 units/L (35-129) 02/12/19 13:23 Troponin T < 0.010 ng/mL (0.00-0.029) 02/12/19 13:23 Total Protein 8.2 g/dL (6.3-8.2) 02/12/19 13:23 Albumin 4.3 g/dL (3.9-5) 02/12/19 13:23 Albumin/Globulin Ratio 1.1 % 02/12/19 13:23 Triglycerides 450 mg/dL (2-149) H 02/13/19 03:32 Cholesterol 191 mg/dL (50-199) 02/13/19 03:32 LDL Cholesterol Direct TNR 02/13/19 03:32 HDL Cholesterol 26 mg/dL (40-59) L 02/13/19 03:32 Cholesterol/HDL Ratio 7.34 % 02/13/19 03:32 TSH 2.360 mlU/mL (0.270-4.200) 02/12/19 13:23 Urine Opiates Screen Presumptive negative 02/12/19 Unknown Urine Methadone Screen Presumptive negative 02/12/19 Unknown Ur Barbiturates Screen Presumptive negative 02/12/19 Unknown Ur Phencyclidine Scrn Presumptive negative 02/12/19 Unknown Ur Amphetamines Screen Presumptive negative 02/12/19 Unknown U Benzodiazepines Scrn Presumptive negative 02/12/19 Unknown Urine Cocaine Screen Presumptive negative 02/12/19 Unknown U Marijuana (THC) Screen Presumptive negative 02/12/19 Unknown Drugs of Abuse Note Disclamer 02/12/19 Unknown Active Medications - Current Medications Current Medications: Generic Name Dose Route Start Last Admin Trade Name Freq PRN Reason Stop Dose Admin Acetaminophen 650 mg 02/12/19 16:05 Tylenol PO Q4H PRN Pain MILD(1-3)/Fever >100.5/HEALY Albuterol 2.5 mg 02/12/19 16:05 Proventil IH Q4HRT PRN Shortness Of Breath Dextrose 50 ml 02/12/19 16:04 D50w (25gm) Syringe IV Q30MIN PRN Hypoglycemia Protocol Diltiazem HCl 60 mg 02/13/19 14:00 02/14/19 21:34 Cardizem PO 60 mg TID DANA Administration Enoxaparin Sodium 120 mg 02/13/19 10:00 02/14/19 21:35 Enoxaparin SUB-Q 120 mg BID DANA Administration Famotidine 20 mg 02/12/19 22:00 02/14/19 21:33 Pepcid PO 20 mg BID DANA Administration Insulin Human Lispro 0 unit 02/13/19 11:30 02/14/19 21:33 Humalog SUB-Q Not Given ACHS DANA Protocol Metoprolol Tartrate 50 mg 02/13/19 11:00 02/14/19 21:35 Metoprolol PO 50 mg BID DNAA Administration Ondansetron HCl 4 mg 02/12/19 16:05 Zofran IV Q8H PRN Nausea And Vomiting Sodium Chloride 10 ml 02/12/19 22:00 02/14/19 21:42 Sodium Chloride Flush Syringe 10 Ml IV 10 ml BID DANA Administration Sodium Chloride 10 ml 02/12/19 16:05 Sodium Chloride Flush Syringe 10 Ml IV PRN PRN LINE FLUSH Nutrition/Malnutrition Assess - Dietary Evaluation Nutrition/Malnutrition Findings: Nutrition Notes Start: 02/13/19 09:42 Freq: Status: Active Protocol: Document 02/14/19 12:12 LM (Rec: 02/14/19 12:16 LM [id number]) Nutrition Notes Initial or Follow up Brief Note Current Diagnosis Diabetes,Hypertension Current Diet Cardiac/consistent CHO Labs/Tests POC glu 170 HgbA1C 9.1 Pertinent Medications Reviewed Subjective/Other Information New DM diet education. Pt stated he has good appetite and no wt changes. Pt reports his UBW is around 270 lb. Informed pt of DM classes available at [facility]. #1 Nutrition Diagnosis Food and nutrition-related knowledge deficit Etiology No prior DM diet education As Evidenced by Signs and Symptoms Pt needing DM diet education, new onset DM, HgbA1C of 9.1 Nutrition Intervention Teaching Recipient Patient,Significant Other Learning Readiness Good Teaching Methods Discussion,Handout Response to Teaching Verbalize understanding Education Handouts Provided Carbohydrate Counting for People with Diabetes Barriers to Learning No Barriers RD phone number provided Yes Patient aware of follow up options Yes Revisit per MD consult or patient Sign Off request:
--- NOTE | 2019-02-15 10:43 | Progress Note ---
Assessment and Plan stress mpi this am - tds but grossly no evidence of ischemia tte also rereviewed clinically improved and asx ok to d/c from cardiac perspective upon dc, would start noac - eliquis 5 bid decrease cardizem to 60 bid, cont metoprolol f/u with us in office. - Patient Problems (1) Atrial fibrillation and flutter Current Visit: Yes Status: Acute (2) Obesity hypoventilation syndrome Current Visit: Yes Status: Acute (3) Obesity Current Visit: Yes Status: Chronic (4) Paroxysmal atrial flutter Current Visit: No Status: Acute Subjective Date of service: 02/15/19 Principal diagnosis: parox afib/aflutter Interval history: pt feels well no complaints no cp/sob Objective Vital Signs Temp Pulse Resp BP Pulse Ox 02/15/19 09:22 122/80 02/15/19 09:20 133/81 02/15/19 09:18 132/82 02/15/19 09:17 125/86 02/15/19 09:14 120/87 02/15/19 08:43 126/79 02/15/19 08:37 120/71 02/15/19 07:50 66 123/73 94 02/15/19 03:51 98.9 F 63 18 120/75 100 02/14/19 23:32 97.8 F 67 20 112/70 96 02/14/19 21:47 100 02/14/19 21:35 70 142/88 02/14/19 21:34 70 142/88 02/14/19 19:21 98.4 F 70 18 142/88 96 02/14/19 19:17 84 02/14/19 14:17 80 112/72 02/14/19 11:59 98.3 F 63 18 110/72 96 - Physical Examination General: No Apparent Distress HEENT: Positive: PERRL, Normocephaly, Mucus Membranes Moist Neck: Positive: neck supple, trachea midline Neuro: Positive: Grossly Intact Abdomen: Positive: Unremarkable. Negative: Tender /Rectal: Other (deferred) Skin: Positive: Clear. Negative: Rash Musculoskeletal: Normal Range of Motion Extremities: Present: normal. Absent: edema - Imaging and Cardiology EKG: report reviewed, image reviewed Echo: pending - EKG Sinus rhythms and dysrhythmias: sinus rhythm
[2019-02-15] MEDS: METOPROLOL TARTRATE 50 MG TAB PO SCH (11:27)
[2019-02-15] MEDS: ENOXAPARIN 120 MG/0.8 ML INJ SUB-Q SCH (11:27)
[2019-02-15] MEDS: FAMOTIDINE 20 MG TAB PO SCH (11:27)
[2019-02-15 11:44] VITALS: BP 148/89
--- NOTE | 2019-02-15 11:45 | Treadmill Report ---
The patient is here for a nuclear stress test protocol. REFERRING PHYSICIAN: Dr. Renny Doherty. PROTOCOL: The patient was brought to the stress lab in a postoperative state, given 10 mCi of technetium 99m at rest. The patient underwent rest imaging. The patient underwent Lexiscan stress test. At peak stress, the patient was given 26 mCi of technetium 99m. Shortly thereafter, the patient underwent stress imaging. Interpretation of raw imaging reveals mild GI artifact. No significant motion artifact. Technically somewhat difficult study due to body habitus and GI artifact, but grossly no evidence of significant fixed or reversible perfusion defects suggestive of prior infarction or ischemia. Gated wall motion reveals normal systolic thickening, calculated ejection fraction of 56%. No TID. CONCLUSIONS: 1. Technically difficult study, but grossly probably normal without evidence of significant degree of ischemia or prior infarction. 2. Preserved left ventricular systolic performance with calculated ejection fraction of 56% without evidence of stress-induced segmental wall motion abnormalities or transient ischemic dilation. JOB# [id number] FIDE/BRUCE
--- NOTE | 2019-02-15 12:31 | Discharge Summary ---
Providers - Providers Date of Admission: 02/13/19 20:16 Date of discharge: 02/15/19 Attending physician: MICKIE CALERO 02/12/19 15:11 Consult to Physician [CONS] Urgent Comment: CLD OFC TO ADV OF CONSULT @0250 Consulting Provider: SONYA DENNY Physician Instructions: Reason For Exam: svt Primary care physician: [facility] [place], [place] Hospitalization Reason for admission: palpitations and chest pain Condition: Stable Pertinent studies: Chest x-ray Echocardiogram Stress test Hospital course: 53 YO Male with Obesity presents to ED for evaluation. Pt states that he has experienced feeling like his "heart is pounding" over the past 4 days with intermittently persistent symptoms over the same time frame. Pt transported to [facility]. Pt seen and evaluated in ED and found to have New onset Atrial Fib/flutter with heart rate in the 150's, Obesity Hypoventilation. Pt placed in observation status and admitted to telemetry. Evaluated by cardiology, had stress test which was negative, medications optimized Symptoms significantly improved, today patient is comfortable no new complaints vital signs stable physical examination unremarkable, Hemodynamically and clinically stable at discharge Advice weight reduction when medically stable Advice outpatient sleep study to rule out obstructive sleep apnea Patient verbalized understanding Discharge diagnosis: -- Atrial fibrillation and flutter with rapid ventricular rate Current Visit: Yes Status: Acute Rate control with cardizem, telemetry monitoring, supportive care. Cardiology consult. Therapeutic anticoagulation with Lovenox --Atypical chest pain ; Rule out acute coronary syndrome Stress test when rate is controlled Cardiology following --Obesity hypoventilation syndrome Current Visit: Yes Status: Acute pulse oximetry, chest x ray, NIPPV as clinically indicated, Outpatient sleep study, --2 Diabetes Current Visit: Yes Status: Acute ADA diet, insulin, accu check, hgb A1C Diabetic education and nutrition consult if needed --Morbid obesity; advice exercise as tolerated and weight reduction -- DVT prophylaxis Current Visit: Yes Status: Acute SCD to BLE while in bed, Lovenox Stable at Discharge Disposition: DC-01 TO HOME OR SELFCARE Time spent for discharge: 32 min Core Measure Documentation - Palliative Care Palliative Care/ Comfort Measures: Not Applicable - Core Measures Any of the following diagnoses?: none Exam - Constitutional Vitals: Temp Pulse Resp BP Pulse Ox 98.3 F 85 18 148/89 95 02/15/19 11:42 02/15/19 11:42 02/15/19 11:42 02/15/19 11:42 02/15/19 11:42 General appearance: Present: no acute distress, well-nourished, obese (morbidly obese) - EENT Eyes: Present: PERRL, EOM intact - Neck Neck: Present: supple, normal ROM - Respiratory Respiratory effort: normal Respiratory: bilateral: diminished, negative: rales, rhonchi, wheezing - Cardiovascular Rhythm: regular Heart Sounds: Present: S1 & S2 - Extremities Extremities: no ischemia, No edema - Abdominal General gastrointestinal: Present: soft, non-tender, non-distended, normal bowel sounds - Integumentary Integumentary: Present: clear, warm - Musculoskeletal Musculoskeletal: strength equal bilaterally - Psychiatric Psychiatric: appropriate mood/affect, cooperative - Neurologic Neurologic: moves all extremities Plan Activity: advance as tolerated, fall precautions Diet: diabetic Additional Instructions: Exercise as tolerated and weight reduction. As Your blood sugars are below 200 during the hospital stay, will not start diabetic medications at this point .advice strict diabetic diet,. follow primary care physician, private kitchen worker. For further evaluation and management of new onset diabetes Follow up with: [facility] MD MANJULA [Primary Care Provider] - 7 [facility] [Staff Physician[facility] - 14 Days Prescriptions: dilTIAZem [CarDIZEM] 60 mg PO Q12H #60 tablet Apixaban [Eliquis] 5 mg PO Q12HR #60 tablet Metoprolol [Lopressor TAB] 50 mg PO BID #60 tablet
[2019-02-15] MEDS ORDERED: APIXABAN 5 MG TAB PO SCH (22:00)
== END 2019-02-15 15:00 | disposition home or self-care (01) | DRG 309 ==
LOC: ED 13:00 → 4A 16:05 → OBSVTOIN 02-13 20:16
PROVIDERS: ADMIT Internal Medicine; ATTEND Internal Medicine
DX: I48.0 Paroxysmal atrial fibrillation (principal); E66.2 Morbid (severe) obesity with alveolar hypoventilation; Z68.41 Body mass index [BMI] 40.0-44.9, adult; E11.65 Type 2 diabetes mellitus with hyperglycemia; I48.92 Unspecified atrial flutter; I47.1 Supraventricular tachycardia; I10 Essential (primary) hypertension; Z87.891 Personal history of nicotine dependence; Z82.49 Family history of ischemic heart disease and other diseases of the circulatory system; Z83.3 Family history of diabetes mellitus; Z71.3 Dietary counseling and surveillance; Z79.84 Long term (current) use of oral hypoglycemic drugs
CPT/HCPCS: 36415; 71045; 78452; 80048; 80053; 80061; 80307; 82962; 83036; 83735; 84443; 84484; 85025; 85027; 85379; 93005; 93010; 93017; 93306; G0378; A9502; J1650; J1815; J2785